=== PATIENT | female | born 1985 | race American Indian/Alaskan Native ===

== ENCOUNTER 2016-04-06 04:01 | Emergency (ER) | payer MEDICAID ==
[2016-04-06 04:41] VITALS: BP 158/104
== END 2016-04-06 04:46 | disposition left against medical advice (07) ==
LOC: ED 04:01
DX: R07.9 Chest pain, unspecified (principal); R10.9 Unspecified abdominal pain; Z53.21 Procedure and treatment not carried out due to patient leaving prior to being seen by health care provider
CPT/HCPCS: 93005; 93010

== ENCOUNTER 2016-09-01 11:41 | Emergency (ER) | payer MEDICAID ==
[2016-09-01 11:53] VITALS: BP 154/96
--- NOTE | 2016-09-01 12:58 | Emergency Department Report ---
HPI - General Chief Complaint: Dental/Oral Time Seen by Provider: 09/01/16 12:57 - HPI HPI: Patient reported that she is having in toothache to right lower back tooth despite ongoing on and off. She denies any fever or chills. Denies any swelling. She reports pain is 6/10 and is worse with eating. pain is achy and sensation ibuprofen. She does not have a dentist. Denies any difficulty swallowing and sore throat. Denies any upper/lower respiratory symptoms. ED Past Medical Hx - Past Medical History Previous Medical History?: Yes Hx Asthma: Yes - Surgical History Past Surgical History?: Yes Additional Surgical History: skin cancer removed - Family History Family history: no significant - Social History Smoking Status: Current Every Day Smoker Substance Use Type: Alcohol - Medications Home Medications: Home Medications Medication Instructions Recorded Confirmed Last Taken Type Clindamycin [Clindamycin CAP] 450 mg PO Q6HR #58 capsule 03/10/16 Unknown Rx Naproxen [Naprosyn] 500 mg PO BID #30 tablet 03/10/16 Unknown Rx Clindamycin [Clindamycin CAP] 300 mg PO Q8H #30 cap 09/01/16 Unknown Rx Ibuprofen [Motrin] 600 mg PO Q8H PRN #15 tablet 09/01/16 Unknown Rx ED Review of Systems ROS: Stated complaint: TOOTHACHE/INFECTION Other details as noted in HPI Comment: All other systems reviewed and negative Constitutional: denies: chills, fever Eyes: denies: eye pain ENT: dental pain. denies: ear pain, throat pain, epistaxis, congestion Respiratory: no symptoms reported Cardiovascular: denies: chest pain, palpitations, edema, syncope Gastrointestinal: denies: abdominal pain, nausea, vomiting Musculoskeletal: denies: back pain, arthralgia Skin: denies: rash Neurological: denies: headache Physical Exam - Physical Exam Vital Signs: Vital Signs 09/01/16 11:51 Temperature 98.8 F Pulse Rate 97 H Respiratory 16 Rate Blood Pressure 154/96 O2 Sat by Pulse 97 Oximetry General: This is a 31-year-old female well-nourished well-developed female in acute distress. Physical Exam: Head: Normocephalic atraumatic Mouth: Moist, no pharyngeal exudate or erythema. Uvula is midline and oral airway is patent. positive gingival enlargement. Cavities noted. Positive Dental tenderness since #32 with cavity and erythema. No induration or fluctuance. No facial swelling. No peritonsillar abscesses. Neck: Supple, no C-spine tenderness, no tracheal deviation. Nontender to palpate. no adenopathy Ears: Bilateral TMs pearly pruett .bilateral EAC without any redness swelling or drainage Eyes: Bilateral pupils equal and reactive to light, bilateral EOM intact. Bilateral sclera and conjunctiva without injection. Normal accommodation Nose: Mucosa moist, normal. maxillary and frontal sinus non-tender to palpate. Lungs: clear to auscultate bilaterally no rhonchi wheezes or rales. Normal work of breathing extremity; No CCE. +2 pulses. No neurovascular compromise Cardiovascular: S1-S2, regular rate rhythm. No murmurs. Skin: clean Dry and intact no rash no lesions Psych: Normal mood and behavior ED Course Vital Signs 09/01/16 11:51 Temperature 98.8 F Pulse Rate 97 H Respiratory 16 Rate Blood Pressure 154/96 O2 Sat by Pulse 97 Oximetry - Reevaluation(s) Reevaluation #1: 09/01/16 13:27 She refused Motrin in the emergency room for pain. ED Medical Decision Making - Medical Decision Making ED Course: Toothache, gingival enlargement and dental caries. She is here in the past for similar problems and for treatment of toothache. I discussed with patient that she will need to follow up with a dentist and she doesn't have one [facility] dental clinic. I told her that the problems she is having with her teeth will have to be treated by a dentist. Patient was understanding then. His Motrin and emergency room and discharged home with prescription for Motrin and clindamycin. Critical care attestation.: If time is entered above; I have spent that time in minutes in the direct care of this critically ill patient, excluding procedure time. ED Disposition Clinical Impression: Dental caries, Tooth ache, Gingival enlargement, Oral cellulitis Disposition: DC-01 TO HOME OR SELFCARE Is pt being admited?: No Does the pt Need Aspirin: No Condition: Stable Instructions: Cellulitis (ED), Gingivitis (ED), Dental Caries (ED), Toothache ( ED) Additional Instructions: Follow-up at [facility] dental clinic call tomorrow to schedule an appointment Take antibiotic as prescribed. Prescriptions: Clindamycin [Clindamycin CAP] 300 mg PO Q8H #30 cap Ibuprofen [Motrin] 600 mg PO Q8H PRN #15 tablet PRN Reason: Pain Referrals: PRIMARY CARE,MD [Primary Care Provider] - 3-5 Days Forms: Work/School Release Form(ED)
[2016-09-01] MEDS ORDERED: MOTRIN PO ONE (13:06)
== END 2016-09-01 13:41 | disposition home or self-care (01) ==
LOC: ED 11:41
DX: K12.2 Cellulitis and abscess of mouth (principal); K06.1 Gingival enlargement; K02.9 Dental caries, unspecified; F17.210 Nicotine dependence, cigarettes, uncomplicated; J45.909 Unspecified asthma, uncomplicated
CPT/HCPCS: 99282

== ENCOUNTER 2016-09-03 23:56 | Emergency (ER) | payer MEDICAID ==
[2016-09-04 00:17] VITALS: BP 145/107
[2016-09-04 01:00] LABS: Basophils % (Auto) 0.6 % (0.0-1.8); Eosinophils % (Auto) 0.8 % (0.0-4.3); Hematocrit 41.5 % (30.3-42.9); Mean Corpuscular HGB Conc 34 % (30-34); Mean Corpuscular Hemoglobin 31 pg (28-32); Mean Corpuscular Volume 92 fl (79-97); Platelet Count 288 K/mm3 (140-440); Red Blood Count 4.52 M/mm3 (3.65-5.03); Red Cell Distribution Width 13.1 % (13.2-15.2); White Blood Count 10.3 K/mm3 (4.5-11.0)
[2016-09-04 01:03] LABS: Bacteria,Urine 1+ /HPF (Negative); Bilirubin,Urine NEG (Negative); Blood,Urine NEG (Negative); Ketones,Urine NEG (Negative); Leukocyte Esterase,Urine NEG (Negative); Nitrite,Urine NEG (Negative); Protein,Urine <15 mg/dL mg/dL (Negative); Urobilinogen,Urine < 2.0 mg/dL (<2.0); WBC,Urine < 1.0 /HPF (0.0-6.0)
[2016-09-04 01:15] LABS: Anion Gap 17 mmol/L; BUN/Creatinine Ratio 8.57; Blood Urea Nitrogen 6 mg/dL (7-17); Calcium 8.8 mg/dL (8.4-10.2); Carbon Dioxide 25 mmol/L (22-30); Chloride 101.4 mmol/L (98-107); Glucose 104 mg/dL (65-100); Potassium 3.8 mmol/L (3.6-5.0); Sodium 140 mmol/L (137-145)
--- NOTE | 2016-09-07 11:26 | ED Elopement Review ---
ED Pt Elopement review - Results review Lab results: Laboratory Tests 09/04/16 09/04/16 09/04/16 00:31 00:31 00:35 WBC 10.3 RBC 4.52 Hgb 14.0 Hct 41.5 MCV 92 MCH 31 MCHC 34 RDW 13.1 L Plt Count 288 Lymph % (Auto) 42.8 H [place] % (Auto) 7.6 H Eos % (Auto) 0.8 Baso % (Auto) 0.6 Lymph # 4.4 [place] # 0.8 Eos # 0.1 Baso # 0.1 Seg Neutrophils % 48.2 Seg Neutrophils # 5.0 Sodium 140 Potassium 3.8 Chloride 101.4 Carbon Dioxide 25 Anion Gap 17 BUN 6 L Creatinine 0.7 Estimated GFR > 60 BUN/Creatinine Ratio 8.57 Glucose 104 H Calcium 8.8 Troponin T < 0.010 Urine Color Colorless Urine Turbidity Clear Urine pH 6.0 Ur Specific [place] 1.003 Urine Protein <15 mg/dl Urine Glucose (UA) Neg Urine Ketones Neg Urine Blood Neg Urine Nitrite Neg Urine Bilirubin Neg Urine Urobilinogen < 2.0 Ur Leukocyte Esterase Neg Urine WBC (Auto) < 1.0 Urine RBC (Auto) 1.0 U Epithel Cells (Auto) < 1.0 Urine Bacteria (Auto) 1+ Urine HCG, Qual Negative - Call Back decision Pt Call Back Decision: No action required
== END 2016-09-04 06:04 | disposition left against medical advice (07) ==
LOC: ED 23:56
DX: R03.0 Elevated blood-pressure reading, without diagnosis of hypertension (principal); R51 Headache; R42 Dizziness and giddiness; Z53.21 Procedure and treatment not carried out due to patient leaving prior to being seen by health care provider
CPT/HCPCS: 36415; 80048; 81001; 81025; 84484; 85025; 93005; 93010

== ENCOUNTER 2017-01-03 17:08 | Emergency (ER) | payer MEDICAID ==
[2017-01-03 17:55] LABS: Basophils % (Auto) 0.6 % (0.0-1.8); Eosinophils % (Auto) 0.6 % (0.0-4.3); Hematocrit 45.4 % (30.3-42.9); Hemoglobin 15.3 gm/dl (10.1-14.3); Mean Corpuscular HGB Conc 34 % (30-34); Mean Corpuscular Hemoglobin 31 pg (28-32); Mean Corpuscular Volume 93 fl (79-97); Platelet Count 277 K/mm3 (140-440); Red Blood Count 4.89 M/mm3 (3.65-5.03); Red Cell Distribution Width 13.3 % (13.2-15.2)
[2017-01-03 18:17] LABS: Alanine Aminotransferase 13 units/L (7-56); Albumin/Globulin Ratio 1.4 %; Alkaline Phosphatase 44 units/L (35-129); Anion Gap 16 mmol/L; BUN/Creatinine Ratio 6; Blood Urea Nitrogen 5 mg/dL (7-17); Calcium 8.6 mg/dL (8.4-10.2); Carbon Dioxide 25 mmol/L (22-30); Chloride 101.1 mmol/L (98-107); Glucose 93 mg/dL (65-100); Potassium 4.1 mmol/L (3.6-5.0); Sodium 138 mmol/L (137-145); Total Protein 6.9 g/dL (6.3-8.2)
--- NOTE | 2017-01-03 21:09 | Emergency Department Report ---
ED General Adult HPI - General Chief complaint: Pain General Stated complaint: FLU LIKE SYMPTOMS Time Seen by Provider: 01/03/17 20:43 Source: patient Mode of arrival: Ambulatory Limitations: No Limitations - History of Present Illness Initial comments: pt is a 31 y/o aaf with hx of asthma and infected dental carries who presents for generalized bodyache and fever after toothache that started 2 days ago ,pt advises that she is unable to see dentist because she has no money, pt request referral to community dental services for evaluation and treatment of dental carries. current pain is 3/10 aching pt is not takin otc nsaids, at this time last abx 1 month ago. Complaint: 2 -: days(s) Location: mouth (toothache ) Radiation: non-radiation Severity scale (0 -10): 3 Quality: aching Consistency: intermittent Improves with: none Worsens with: other (hot cold sensation ) Associated Symptoms: fever/chills, malaise. denies: confusion, chest pain, cough, diaphoresis, headaches, loss of appetite, nausea/vomiting, rash, seizure , shortness of breath, syncope, weakness Treatments Prior to Arrival: none - Related Data Previous Rx's Medication Instructions Recorded Last Taken Type Clindamycin [Clindamycin CAP] 450 mg PO Q6HR #58 capsule 03/10/16 Unknown Rx Ibuprofen [Motrin] 600 mg PO Q8H PRN #15 tablet 09/01/16 Unknown Rx Clindamycin [Clindamycin CAP] 300 mg PO Q8H #30 cap 01/03/17 Unknown Rx Naproxen [Naprosyn TAB] 500 mg PO BID #30 tablet 01/03/17 Unknown Rx Allergies Allergy/AdvReac Type Severity Reaction Status Date / Time No Known Allergies Allergy Unverified 03/10/16 13:45 ED Review of Systems ROS: Stated complaint: FLU LIKE SYMPTOMS Other details as noted in HPI Constitutional: denies: chills, fever Eyes: denies: eye pain, eye discharge, vision change ENT: dental pain. denies: ear pain, throat pain, hearing loss, epistaxis, congestion Respiratory: denies: cough, shortness of breath, wheezing Cardiovascular: denies: chest pain, palpitations Endocrine: no symptoms reported Gastrointestinal: denies: abdominal pain, nausea, diarrhea Genitourinary: denies: urgency, dysuria, discharge Musculoskeletal: denies: back pain, joint swelling, arthralgia Skin: denies: rash, lesions Neurological: denies: headache, weakness, paresthesias Psychiatric: denies: anxiety, depression Hematological/Lymphatic: denies: easy bleeding, easy bruising ED Past Medical Hx - Past Medical History Hx Asthma: Yes - Surgical History Additional Surgical History: skin cancer removed - Social History Smoking Status: Current Every Day Smoker Substance Use Type: None - Medications Home Medications: Home Medications Medication Instructions Recorded Confirmed Last Taken Type Clindamycin [Clindamycin CAP] 450 mg PO Q6HR #58 capsule 03/10/16 Unknown Rx Ibuprofen [Motrin] 600 mg PO Q8H PRN #15 tablet 09/01/16 Unknown Rx Clindamycin [Clindamycin CAP] 300 mg PO Q8H #30 cap 01/03/17 Unknown Rx Naproxen [Naprosyn TAB] 500 mg PO BID #30 tablet 01/03/17 Unknown Rx ED Physical Exam - General Limitations: No Limitations General appearance: alert, in no apparent distress - Head Head exam: Present: atraumatic, normocephalic - Eye Eye exam: Present: normal appearance, PERRL, EOMI Pupils: Present: normal accommodation - ENT ENT exam: Present: normal exam, mucous membranes moist, TM's normal bilaterally , normal external ear exam - Expanded ENT Exam Expanded Mouth exam: Present: normal external inspection. Absent: trismus Teeth exam: Present: dental caries, dental tenderness # (27), other (mild erythema no gum swelling no facial swelling no trismus no focal abscess ) Throat exam: Positive: tonsillar erythema. Negative: tonsillomegaly, tonsillar exudate, R peritonsillar mass, L peritonsillar mass - Neck Neck exam: Present: normal inspection, full ROM. Absent: tenderness, lymphadenopathy, thyromegaly - Respiratory Respiratory exam: Present: normal lung sounds bilaterally. Absent: respiratory distress, wheezes, stridor, chest wall tenderness - Cardiovascular Cardiovascular Exam: Present: regular rate, normal rhythm. Absent: systolic murmur, diastolic murmur, rubs, gallop - GI/Abdominal GI/Abdominal exam: Present: soft, normal bowel sounds. Absent: distended, tenderness, guarding, rebound, rigid, organomegaly, mass, bruit, pulsatile mass , hernia - Rectal Rectal exam: Present: deferred - Extremities Exam Extremities exam: Present: normal inspection, full ROM, tenderness - Back Exam Back exam: Present: normal inspection, full ROM, tenderness - Neurological Exam Neurological exam: Present: alert, oriented X3, CN II-XII intact, normal gait, reflexes normal. Absent: motor sensory deficit - Psychiatric Psychiatric exam: Present: normal affect, normal mood - Skin Skin exam: Present: warm, dry, intact, normal color. Absent: rash ED Course Vital Signs 01/03/17 17:13 Temperature 98.6 F Pulse Rate 83 Respiratory 16 Rate Blood Pressure 122/75 O2 Sat by Pulse 100 Oximetry ED Medical Decision Making - Lab Data Result diagrams: 01/03/17 17:40 01/03/17 17:40 - Medical Decision Making pt is a 31 y/o aaf with hx of asthma and infected dental carries who presents for generalized bodyache and fever after toothache that started 2 days ago ,pt advises that she is unable to see dentist because she has no money, pt request referral to community dental services for evaluation and treatment of dental carries. current pain is 3/10 aching pt is not takin otc nsaids, at this time last abx 1 month ago. exam: mild erythema no gum swelling no facial swelling no trismus no focal abscess , plan: clindamycin , naproxen, follow up with [facility] [phone] pt verbalized agreement and understanding with discharge plan. Critical care attestation.: If time is entered above; I have spent that time in minutes in the direct care of this critically ill patient, excluding procedure time. ED Disposition Clinical Impression: Infected dental caries Disposition: TO HOME OR SELFCARE Is pt being admited?: No Does the pt Need Aspirin: No Condition: Good Instructions: Dental Caries (ED) Additional Instructions: follow up with [facility] [phone] Prescriptions: Clindamycin [Clindamycin CAP] 300 mg PO Q8H #30 cap Naproxen [Naprosyn TAB] 500 mg PO BID #30 tablet Referrals: PRIMARY CARE, [Primary Care Provider] - 3-5 Days Forms: Work/School Release Form(ED) Time of Disposition: 21:16
[2017-01-04 02:23] VITALS: BP 128/73
== END 2017-01-03 21:24 | disposition home or self-care (01) ==
LOC: ED 17:08
DX: K02.9 Dental caries, unspecified (principal); J45.909 Unspecified asthma, uncomplicated; F17.200 Nicotine dependence, unspecified, uncomplicated
CPT/HCPCS: 36415; 80053; 81025; 85025; 87086; 87400; 99283

== ENCOUNTER 2017-06-03 13:46 | Emergency (ER) | payer MEDICAID ==
[2017-06-03 13:56] VITALS: BP 118/86
[2017-06-03] MEDS ORDERED: MOTRIN PO ONE (14:51)
--- NOTE | 2017-06-03 14:51 | Emergency Department Report ---
ED ENT HPI - General Chief complaint: Dental/Oral Stated complaint: TOOTH PAIN Time Seen by Provider: 06/03/17 14:50 Source: patient Mode of arrival: Ambulatory Limitations: No Limitations - History of Present Illness Initial comments: This is a 32-year-old female nontoxic, well nourished in appearance, no acute signs of distress presents to the ED with c/o of acute on chronic toothache. Patient stated pain has came back since 2 days ago. Patient denies any facial swelling. He denies any fever, chills, nausea, vomiting, chest pain or shortness of breath. Patient states allergies to penicillin. Past medical history includes asthma, skin cancer, and psychiatric. MD complaint: tooth pain -: days(s) (2) Location: tooth # (28-32) 1 - dental caries 2 - dental dorothea Severity: mild Severity scale (0 -10): 8 Quality: aching Consistency: constant Improves with: none Worsens with: none Context- Dental: history of dental caries, poor dental care Associated Symptoms: gum swelling, toothache. denies: fever, cough, pain with swallowing, sore throat, tinnitus, hearing loss, discharge from ear, rhinorrhea - Related Data Previous Rx's Medication Instructions Recorded Last Taken Type Clindamycin [Clindamycin CAP] 450 mg PO Q6HR #58 capsule 03/10/16 Unknown Rx Ibuprofen [Motrin] 600 mg PO Q8H PRN #15 tablet 09/01/16 Unknown Rx Clindamycin [Clindamycin CAP] 300 mg PO Q8H #30 cap 01/03/17 Unknown Rx Naproxen [Naprosyn TAB] 500 mg PO BID #30 tablet 01/03/17 Unknown Rx Clindamycin [Clindamycin CAP] 150 mg PO Q6HR #40 capsule 01/20/17 Unknown Rx Ibuprofen [Motrin] 800 mg PO Q8HR PRN #30 tablet 01/20/17 Unknown Rx Chlorhexidine Mouthwash [Peridex] 15 ml MM BID #1 bottle 06/03/17 Unknown Rx Clindamycin [Clindamycin CAP] 300 mg PO Q8HR 7 Days capsule 06/03/17 Unknown Rx Ibuprofen [Motrin] 600 mg PO Q8H PRN #30 tablet 06/03/17 Unknown Rx traMADol [Ultram] 50 mg PO Q6HR PRN #15 tablet 06/03/17 Unknown Rx Allergies Allergy/AdvReac Type Severity Reaction Status Date / Time Penicillins Allergy Unknown Verified 01/19/17 20:52 ED Dental HPI - General Chief complaint: Dental/Oral Stated complaint: TOOTH PAIN Time Seen by Provider: 06/03/17 14:50 Source: patient Mode of arrival: Ambulatory Limitations: No Limitations - Related Data Previous Rx's Medication Instructions Recorded Last Taken Type Clindamycin [Clindamycin CAP] 450 mg PO Q6HR #58 capsule 03/10/16 Unknown Rx Ibuprofen [Motrin] 600 mg PO Q8H PRN #15 tablet 09/01/16 Unknown Rx Clindamycin [Clindamycin CAP] 300 mg PO Q8H #30 cap 01/03/17 Unknown Rx Naproxen [Naprosyn TAB] 500 mg PO BID #30 tablet 01/03/17 Unknown Rx Clindamycin [Clindamycin CAP] 150 mg PO Q6HR #40 capsule 01/20/17 Unknown Rx Ibuprofen [Motrin] 800 mg PO Q8HR PRN #30 tablet 01/20/17 Unknown Rx Chlorhexidine Mouthwash [Peridex] 15 ml MM BID #1 bottle 06/03/17 Unknown Rx Clindamycin [Clindamycin CAP] 300 mg PO Q8HR 7 Days capsule 06/03/17 Unknown Rx Ibuprofen [Motrin] 600 mg PO Q8H PRN #30 tablet 06/03/17 Unknown Rx traMADol [Ultram] 50 mg PO Q6HR PRN #15 tablet 06/03/17 Unknown Rx Allergies Allergy/AdvReac Type Severity Reaction Status Date / Time Penicillins Allergy Unknown Verified 01/19/17 20:52 ED Review of Systems ROS: Stated complaint: TOOTH PAIN Other details as noted in HPI Constitutional: denies: chills, fever Eyes: denies: eye pain, eye discharge, vision change ENT: dental pain. denies: ear pain, throat pain Respiratory: denies: cough, shortness of breath, wheezing Cardiovascular: denies: chest pain, palpitations Endocrine: no symptoms reported Gastrointestinal: denies: abdominal pain, nausea, diarrhea Genitourinary: denies: urgency, dysuria, discharge Musculoskeletal: denies: back pain, joint swelling, arthralgia Skin: denies: rash, lesions Neurological: denies: headache, weakness, paresthesias Psychiatric: denies: anxiety, depression Hematological/Lymphatic: denies: easy bleeding, easy bruising ED Past Medical Hx - Past Medical History Previous Medical History?: Yes Hx of Cancer: Yes (skin) Hx Psychiatric Treatment: Yes (Anxiety, Schizophrenia, Depression, Memory problems) Hx Asthma: Yes - Surgical History Past Surgical History?: Yes Additional Surgical History: skin cancer removed - Social History Smoking Status: Current Every Day Smoker Substance Use Type: Alcohol, Marijuana - Medications Home Medications: Home Medications Medication Instructions Recorded Confirmed Last Taken Type Clindamycin [Clindamycin CAP] 450 mg PO Q6HR #58 capsule 03/10/16 Unknown Rx Ibuprofen [Motrin] 600 mg PO Q8H PRN #15 tablet 09/01/16 Unknown Rx Clindamycin [Clindamycin CAP] 300 mg PO Q8H #30 cap 01/03/17 Unknown Rx Naproxen [Naprosyn TAB] 500 mg PO BID #30 tablet 01/03/17 Unknown Rx Clindamycin [Clindamycin CAP] 150 mg PO Q6HR #40 capsule 01/20/17 Unknown Rx Ibuprofen [Motrin] 800 mg PO Q8HR PRN #30 tablet 01/20/17 Unknown Rx Chlorhexidine Mouthwash [Peridex] 15 ml MM BID #1 bottle 06/03/17 Unknown Rx Clindamycin [Clindamycin CAP] 300 mg PO Q8HR 7 Days capsule 06/03/17 Unknown Rx Ibuprofen [Motrin] 600 mg PO Q8H PRN #30 tablet 06/03/17 Unknown Rx traMADol [Ultram] 50 mg PO Q6HR PRN #15 tablet 06/03/17 Unknown Rx ED Physical Exam - General Limitations: No Limitations General appearance: alert, in no apparent distress - Head Head exam: Present: atraumatic, normocephalic - Eye Eye exam: Present: normal appearance Pupils: Present: normal accommodation - ENT ENT exam: Present: mucous membranes moist, TM's normal bilaterally, normal external ear exam - Expanded ENT Exam Expanded Ear exam: Present: normal external inspection Mouth exam: Present: normal external inspection, tongue normal. Absent: drooling, trismus, muffled voice, tongue elevation, laceration Teeth exam: Present: dental caries, fractured tooth # (28-32), dental tenderness # (28-32), gingival enlargement, other (No facial swelling. ) Throat exam: Positive: normal inspection, other (Uvula midline. No abscess or swelling noted. ). Negative: tonsillar erythema, tonsillomegaly, tonsillar exudate, R peritonsillar mass, L peritonsillar mass - Neck Neck exam: Present: normal inspection, full ROM. Absent: tenderness, meningismus, lymphadenopathy, thyromegaly - Respiratory Respiratory exam: Present: normal lung sounds bilaterally. Absent: respiratory distress, wheezes, rales, rhonchi, stridor, chest wall tenderness, accessory muscle use, decreased breath sounds, prolonged expiratory - Cardiovascular Cardiovascular Exam: Present: regular rate, normal rhythm, normal heart sounds. Absent: irregular rhythm, systolic murmur, diastolic murmur, rubs, gallop - GI/Abdominal GI/Abdominal exam: Present: soft, normal bowel sounds - Extremities Exam Extremities exam: Present: normal inspection - Back Exam Back exam: Present: normal inspection - Neurological Exam Neurological exam: Present: alert, oriented X3 - Psychiatric Psychiatric exam: Present: normal affect, normal mood - Skin Skin exam: Present: warm, dry, intact, normal color. Absent: rash ED Course Vital Signs 06/03/17 13:51 Temperature 98.8 F Pulse Rate 92 H Respiratory 20 Rate Blood Pressure 118/86 O2 Sat by Pulse 97 Oximetry - Reevaluation(s) Reevaluation #1: 06/03/17 15:17 Patient is speaking in full sentences with no signs of distress noted. ED Medical Decision Making - Medical Decision Making Patient returned with the mediation Clindamycin bottle and stated the capsules are too big and can not swallow. PAtient requested for 150 mg pills. Critical care attestation.: If time is entered above; I have spent that time in minutes in the direct care of this critically ill patient, excluding procedure time. ED Disposition Clinical Impression: Dental caries, Gingivitis Disposition: - TO HOME OR SELFCARE Is pt being admited?: No Does the pt Need Aspirin: No Condition: Stable Instructions: Clindamycin (By mouth), Tramadol (By mouth), Dental Caries (ED), Gingivitis (ED) Additional Instructions: Follow-up with a dentist in 3-5 days or if symptoms worsen and continue return to emergency room as soon as possible. Prescriptions: Chlorhexidine Mouthwash [Peridex] 15 ml MM BID #1 bottle Clindamycin [Clindamycin CAP] 300 mg PO Q8HR 7 Days capsule Ibuprofen [Motrin] 600 mg PO Q8H PRN #30 tablet PRN Reason: Pain traMADol [Ultram] 50 mg PO Q6HR PRN #15 tablet PRN Reason: Pain Referrals: PRIMARY CAREMD [Primary Care Provider] - 3-5 Days VERÓNICA LORENZO MD [Staff Physician] - 3-5 Days Mamadou [facility] [Outside] - 3-5 Days Forms: Work/School Release Form(ED)
== END 2017-06-03 15:53 | disposition home or self-care (01) ==
LOC: ED 13:46
DX: K05.10 Chronic gingivitis, plaque induced (principal); K02.9 Dental caries, unspecified; F17.200 Nicotine dependence, unspecified, uncomplicated; F12.10 Cannabis abuse, uncomplicated; Z88.0 Allergy status to penicillin
CPT/HCPCS: 99282

== ENCOUNTER 2017-11-07 20:31 | Emergency (ER) | payer MEDICAID ==
[2017-11-07 21:01] VITALS: BP 129/75
--- NOTE | 2017-11-08 00:15 | Emergency Department Report ---
- General Chief Complaint: Upper Respiratory Infection Stated Complaint: COLD SX Time Seen by Provider: 11/07/17 23:24 Source: patient Mode of arrival: Ambulatory Limitations: No Limitations - History of Present Illness Initial Comments: Patient presents with URI symptoms 3 days cough and postnasal drip and congestion low-grade fever of 101.2 which intermittent sore throat patient is tolerating by mouth intake is no nausea vomiting no dizziness no lightheadedness no back pain or shortness of breath no wheezing no stridor patient has not taken [id number] cold medications symptoms are exacerbated by activity symptoms are improved by rest MD Complaint: fever, cough, sore throat, rhinorrhea, nasal congestion Onset/Timin -: week(s) Severity: moderate Severity scale (0 -10): 4 (lungs are) Quality: sharp Consistency: intermittent Improves With: rest Worsens With: activity Context: sick contacts Associated Symptoms: fever, rhinorrhea, nasal congestion, sore throat, cough Treatments Prior to Arrival: none - Related Data Previous Rx's Medication Instructions Recorded Last Taken Type Clindamycin [Clindamycin CAP] 450 mg PO Q6HR #58 capsule 03/10/16 Unknown Rx Ibuprofen [Motrin] 600 mg PO Q8H PRN #15 tablet 09/01/16 Unknown Rx Clindamycin [Clindamycin CAP] 300 mg PO Q8H #30 cap 01/03/17 Unknown Rx Naproxen [Naprosyn TAB] 500 mg PO BID #30 tablet 01/03/17 Unknown Rx Clindamycin [Clindamycin CAP] 150 mg PO Q6HR #40 capsule 01/20/17 Unknown Rx Ibuprofen [Motrin] 800 mg PO Q8HR PRN #30 tablet 01/20/17 Unknown Rx Chlorhexidine Mouthwash [Peridex] 15 ml MM BID #1 bottle 06/03/17 Unknown Rx Clindamycin [Clindamycin CAP] 300 mg PO Q8HR 7 Days capsule 06/03/17 Unknown Rx Ibuprofen [Motrin] 600 mg PO Q8H PRN #30 tablet 06/03/17 Unknown Rx traMADol [Ultram] 50 mg PO Q6HR PRN #15 tablet 06/03/17 Unknown Rx Guaifenesin/Pseudoephedrne HCl 1 tab PO BID #24 tab 11/08/17 Unknown Rx [Mucinex D ER 1,200-120 mg Tab] Ibuprofen 800 mg PO TID PRN #30 tablet 11/08/17 Unknown Rx Allergies Allergy/AdvReac Type Severity Reaction Status Date / Time Penicillins Allergy Unknown Verified 01/19/17 20:52 ED Review of Systems ROS: Stated complaint: COLD SX Other details as noted in HPI Constitutional: chills, fever ENT: throat pain, congestion Respiratory: cough Cardiovascular: denies: chest pain, palpitations Endocrine: no symptoms reported Gastrointestinal: denies: abdominal pain, nausea, diarrhea Genitourinary: denies: urgency, dysuria, discharge Musculoskeletal: denies: back pain, joint swelling, arthralgia Skin: denies: rash, lesions Neurological: denies: headache, weakness, paresthesias Psychiatric: denies: anxiety, depression Hematological/Lymphatic: denies: easy bleeding, easy bruising ED Past Medical Hx - Past Medical History Hx Psychiatric Treatment: Yes (Anxiety, Schizophrenia, Depression, Memory problems) Hx Asthma: Yes - Surgical History Additional Surgical History: skin cancer removed - Social History Smoking Status: Never Smoker Substance Use Type: None - Medications Home Medications: Home Medications Medication Instructions Recorded Confirmed Last Taken Type Clindamycin [Clindamycin CAP] 450 mg PO Q6HR #58 capsule 03/10/16 Unknown Rx Ibuprofen [Motrin] 600 mg PO Q8H PRN #15 tablet 09/01/16 Unknown Rx Clindamycin [Clindamycin CAP] 300 mg PO Q8H #30 cap 01/03/17 Unknown Rx Naproxen [Naprosyn TAB] 500 mg PO BID #30 tablet 01/03/17 Unknown Rx Clindamycin [Clindamycin CAP] 150 mg PO Q6HR #40 capsule 01/20/17 Unknown Rx Ibuprofen [Motrin] 800 mg PO Q8HR PRN #30 tablet 01/20/17 Unknown Rx Chlorhexidine Mouthwash [Peridex] 15 ml MM BID #1 bottle 06/03/17 Unknown Rx Clindamycin [Clindamycin CAP] 300 mg PO Q8HR 7 Days capsule 06/03/17 Unknown Rx Ibuprofen [Motrin] 600 mg PO Q8H PRN #30 tablet 06/03/17 Unknown Rx traMADol [Ultram] 50 mg PO Q6HR PRN #15 tablet 06/03/17 Unknown Rx Guaifenesin/Pseudoephedrne HCl 1 tab PO BID #24 tab 11/08/17 Unknown Rx [Mucinex D ER 1,200-120 mg Tab] Ibuprofen 800 mg PO TID PRN #30 tablet 11/08/17 Unknown Rx ED Physical Exam - General Limitations: No Limitations General appearance: alert, in no apparent distress - Head Head exam: Present: atraumatic, normocephalic, normal inspection - Eye Eye exam: Present: normal appearance, PERRL, EOMI Pupils: Present: normal accommodation - ENT ENT exam: Present: mucous membranes moist, TM's normal bilaterally, normal external ear exam, other (bilat turbinate erythema clear post nasal drip ) - Expanded ENT Exam Expanded Ear exam: Present: normal external inspection Mouth exam: Absent: trismus Teeth exam: Present: normal inspection Throat exam: Positive: tonsillar erythema, other (uvula midline no stridor). Negative: tonsillomegaly, tonsillar exudate, R peritonsillar mass, L peritonsillar mass - Neck Neck exam: Present: normal inspection, full ROM. Absent: lymphadenopathy, thyromegaly - Respiratory Respiratory exam: Present: normal lung sounds bilaterally. Absent: respiratory distress, wheezes, stridor, chest wall tenderness - Cardiovascular Cardiovascular Exam: Present: regular rate, normal rhythm, normal heart sounds. Absent: systolic murmur, diastolic murmur, rubs, gallop - GI/Abdominal GI/Abdominal exam: Present: soft, normal bowel sounds. Absent: bruit, hernia - Rectal Rectal exam: Present: deferred - Extremities Exam Extremities exam: Present: normal inspection - Back Exam Back exam: Present: normal inspection - Neurological Exam Neurological exam: Present: alert, oriented X3 - Psychiatric Psychiatric exam: Present: normal affect, normal mood - Skin Skin exam: Present: warm, dry, intact, normal color. Absent: rash ED Course Vital Signs 11/07/17 20:58 Temperature 100 F H Pulse Rate 96 H Respiratory 16 Rate Blood Pressure 129/75 O2 Sat by Pulse 96 Oximetry ED Medical Decision Making - Medical Decision Making This is a URI no TM erythema nose is patent bilateral turbinate erythema clear postnasal drip uvula remains midline no stridor is no wheezing lungs are clear plan NSAIDs antitussives patient has active prescription for clindamycin by mouth 3 times a day, patient will follow up with PCP in 2-3 days return to the ED should symptoms worsen Critical care attestation.: If time is entered above; I have spent that time in minutes in the direct care of this critically ill patient, excluding procedure time. ED Disposition Clinical Impression: URI (upper respiratory infection) Qualifiers: URI type: unspecified viral URI Qualified Code(s): J06.9 - Acute upper respiratory infection, unspecified Disposition: DC- TO HOME OR SELFCARE Is pt being admited?: No Does the pt Need Aspirin: No Condition: Good Instructions: Upper Respiratory Infection (ED) Prescriptions: Guaifenesin/Pseudoephedrne HCl [Mucinex D ER 1,200-120 mg Tab] 1 tab PO BID #24 tab Ibuprofen 800 mg PO TID PRN #30 tablet PRN Reason: pain fever Referrals: [facility] [Outside] - 3-5 Days Forms: Work/School Release Form(ED) Time of Disposition: 00:26
== END 2017-11-08 00:53 | disposition home or self-care (01) ==
LOC: ED 20:31
DX: J06.9 Acute upper respiratory infection, unspecified (principal); J45.909 Unspecified asthma, uncomplicated; F41.9 Anxiety disorder, unspecified; F20.9 Schizophrenia, unspecified; F32.9 Major depressive disorder, single episode, unspecified; Z79.899 Other long term (current) drug therapy; Z88.0 Allergy status to penicillin
CPT/HCPCS: 99282

== ENCOUNTER 2017-12-08 22:39 | Emergency (ER) | payer MEDICAID ==
[2017-12-08] MEDS ORDERED: MOTRIN ONE (23:31)
[2017-12-09] MEDS ORDERED: NACL 0.9% 1000 ML 1,000 ML IV ONE (00:02)
[2017-12-09] MEDS ORDERED: MOTRIN PO ONE (00:11)
[2017-12-09 00:37] LABS: Basophils # (Auto) 0.1 K/mm3 (0.0-0.1); Basophils % (Auto) 0.6 % (0.0-1.8); Eosinophils # (Auto) 0.1 K/mm3 (0.0-0.4); Eosinophils % (Auto) 0.6 % (0.0-4.3); Hematocrit 44.9 % (30.3-42.9); Lymphocytes # (Auto) 3.8 K/mm3 (1.2-5.4); Lymphocytes % (Auto) 38.2 % (13.4-35.0); Mean Corpuscular HGB Conc 34 % (30-34); Mean Corpuscular Hemoglobin 31 pg (28-32); Mean Corpuscular Volume 93 fl (79-97); Monocytes # (Auto) 0.8 K/mm3 (0.0-0.8); Monocytes % (Auto) 8.3 % (0.0-7.3); Platelet Count 249 K/mm3 (140-440); Red Blood Count 4.85 M/mm3 (3.65-5.03); Red Cell Distribution Width 13.2 % (13.2-15.2)
[2017-12-09 00:56] LABS: Alanine Aminotransferase 13 units/L (7-56); Albumin 4.3 g/dL (3.9-5); BUN/Creatinine Ratio 10; Blood Urea Nitrogen 8 mg/dL (7-17); Calcium 9.6 mg/dL (8.4-10.2); Hemolysis Index 5; Lipase 21 units/L (13-60)
[2017-12-09 06:14] LABS: Bilirubin,Urine NEG (Negative); Blood,Urine NEG (Negative); Color,Urine Yellow (Yellow); Mucus,Urine FEW /HPF; Protein,Urine <15 mg/dL mg/dL (Negative); Urobilinogen,Urine < 2.0 mg/dL (<2.0); WBC,Urine < 1.0 /HPF (0.0-6.0)
[2017-12-09 08:27] VITALS: BP 108/71
--- NOTE | 2017-12-09 08:33 | Emergency Department Report ---
ED General Adult HPI - General Chief complaint: Abdominal Pain Stated complaint: TOOTH PAIN/ABDOMINAL PAIN Time Seen by Provider: 12/09/17 08:21 Source: patient Mode of arrival: Ambulatory Limitations: No Limitations - History of Present Illness Initial comments: Patient is 32 years old female with history of gallstones. Presented to the ER was to complaints. Patient presented with right jaw swelling and teeth pain for the last 2-3 days. She also stated that she didn't having some abdominal pain for 1 year. She stated that she was diagnosed with gallstone before and she did not have a surgeon to follow up with yet. Patient denied any fever, nausea or vomiting. Severity scale (0 -10): 7 - Related Data Previous Rx's Medication Instructions Recorded Last Taken Type Clindamycin [Clindamycin CAP] 450 mg PO Q6HR #58 capsule 03/10/16 Unknown Rx Ibuprofen [Motrin] 600 mg PO Q8H PRN #15 tablet 09/01/16 Unknown Rx Clindamycin [Clindamycin CAP] 300 mg PO Q8H #30 cap 01/03/17 Unknown Rx Naproxen [Naprosyn TAB] 500 mg PO BID #30 tablet 01/03/17 Unknown Rx Clindamycin [Clindamycin CAP] 150 mg PO Q6HR #40 capsule 01/20/17 Unknown Rx Ibuprofen [Motrin] 800 mg PO Q8HR PRN #30 tablet 01/20/17 Unknown Rx Chlorhexidine Mouthwash [Peridex] 15 ml MM BID #1 bottle 06/03/17 Unknown Rx Clindamycin [Clindamycin CAP] 300 mg PO Q8HR 7 Days capsule 06/03/17 Unknown Rx Ibuprofen [Motrin] 600 mg PO Q8H PRN #30 tablet 06/03/17 Unknown Rx traMADol [Ultram] 50 mg PO Q6HR PRN #15 tablet 06/03/17 Unknown Rx Guaifenesin/Pseudoephedrne HCl 1 tab PO BID #24 tab 11/08/17 Unknown Rx [Mucinex D ER 1,200-120 mg Tab] Ibuprofen 800 mg PO TID PRN #30 tablet 11/08/17 Unknown Rx Clindamycin [Clindamycin CAP] 300 mg PO Q8HR 7 Days capsule 12/09/17 Unknown Rx Ondansetron [Zofran Odt] 4 mg PO Q8HR PRN #14 tab.rapdis 12/09/17 Unknown Rx Ursodiol (Nf) [Actigall (Nf)] 300 mg PO BID #60 capsule 12/09/17 Unknown Rx traMADol [Ultram] 50 mg PO Q6HR PRN #14 tablet 12/09/17 Unknown Rx Allergies Allergy/AdvReac Type Severity Reaction Status Date / Time Penicillins Allergy Unknown Verified 01/19/17 20:52 ED Review of Systems ROS: Stated complaint: TOOTH PAIN/ABDOMINAL PAIN Other details as noted in HPI Comment: All other systems reviewed and negative ENT: denies: throat pain Respiratory: denies: orthopnea Cardiovascular: denies: chest pain, palpitations, dyspnea on exertion Gastrointestinal: abdominal pain. denies: nausea, vomiting, diarrhea, constipation, hematemesis, melena, hematochezia Musculoskeletal: denies: back pain Neurological: denies: headache, weakness, numbness, paresthesias, confusion, abnormal gait ED Past Medical Hx - Past Medical History Hx Psychiatric Treatment: Yes (Anxiety, Schizophrenia, Depression, Memory problems) Hx Asthma: Yes Additional medical history: Gall stones - Surgical History Additional Surgical History: skin cancer removed - Social History Smoking Status: Current Every Day Smoker Substance Use Type: None - Medications Home Medications: Home Medications Medication Instructions Recorded Confirmed Last Taken Type Clindamycin [Clindamycin CAP] 450 mg PO Q6HR #58 capsule 03/10/16 Unknown Rx Ibuprofen [Motrin] 600 mg PO Q8H PRN #15 tablet 09/01/16 Unknown Rx Clindamycin [Clindamycin CAP] 300 mg PO Q8H #30 cap 01/03/17 Unknown Rx Naproxen [Naprosyn TAB] 500 mg PO BID #30 tablet 01/03/17 Unknown Rx Clindamycin [Clindamycin CAP] 150 mg PO Q6HR #40 capsule 01/20/17 Unknown Rx Ibuprofen [Motrin] 800 mg PO Q8HR PRN #30 tablet 01/20/17 Unknown Rx Chlorhexidine Mouthwash [Peridex] 15 ml MM BID #1 bottle 06/03/17 Unknown Rx Clindamycin [Clindamycin CAP] 300 mg PO Q8HR 7 Days capsule 06/03/17 Unknown Rx Ibuprofen [Motrin] 600 mg PO Q8H PRN #30 tablet 06/03/17 Unknown Rx traMADol [Ultram] 50 mg PO Q6HR PRN #15 tablet 06/03/17 Unknown Rx Guaifenesin/Pseudoephedrne HCl 1 tab PO BID #24 tab 11/08/17 Unknown Rx [Mucinex D ER 1,200-120 mg Tab] Ibuprofen 800 mg PO TID PRN #30 tablet 11/08/17 Unknown Rx Clindamycin [Clindamycin CAP] 300 mg PO Q8HR 7 Days capsule 12/09/17 Unknown Rx Ondansetron [Zofran Odt] 4 mg PO Q8HR PRN #14 tab.rapdis 12/09/17 Unknown Rx Ursodiol (Nf) [Actigall (Nf)] 300 mg PO BID #60 capsule 12/09/17 Unknown Rx traMADol [Ultram] 50 mg PO Q6HR PRN #14 tablet 12/09/17 Unknown Rx ED Physical Exam - General Limitations: No Limitations General appearance: alert, in no apparent distress - Head Head exam: Present: atraumatic, normocephalic, normal inspection - Eye Eye exam: Present: normal appearance, PERRL Pupils: Present: normal accommodation - ENT ENT exam: Present: normal exam, mucous membranes moist, other (dental caries right lower jaw) - Neck Neck exam: Present: normal inspection, full ROM. Absent: tenderness, meningismus, lymphadenopathy, thyromegaly - Respiratory Respiratory exam: Present: normal lung sounds bilaterally. Absent: respiratory distress, wheezes, rales, rhonchi, chest wall tenderness, accessory muscle use, decreased breath sounds, prolonged expiratory - Cardiovascular Cardiovascular Exam: Present: regular rate, normal rhythm, normal heart sounds - GI/Abdominal GI/Abdominal exam: Present: soft, normal bowel sounds. Absent: distended, tenderness, guarding, rebound, rigid, hypoactive bowel sounds, organomegaly, mass, bruit, pulsatile mass, hernia - Extremities Exam Extremities exam: Present: normal inspection, full ROM, normal capillary refill. Absent: tenderness, pedal edema, calf tenderness - Back Exam Back exam: Present: normal inspection, full ROM. Absent: tenderness, CVA tenderness (R), CVA tenderness (L) - Neurological Exam Neurological exam: Present: alert, oriented X3, CN II-XII intact, normal gait, reflexes normal - Skin Skin exam: Present: warm, intact, normal color ED Course Vital Signs 12/08/17 12/08/17 12/09/17 22:46 23:54 06:22 Temperature 98.8 F 98.8 F 98.3 F Pulse Rate 87 87 71 Respiratory 18 18 16 Rate Blood Pressure 141/88 141/88 Blood Pressure 121/78 [Left] O2 Sat by Pulse 98 98 98 Oximetry 12/09/17 08:15 Temperature Pulse Rate 77 Respiratory 16 Rate Blood Pressure Blood Pressure 108/71 [Left] O2 Sat by Pulse 100 Oximetry - Reevaluation(s) Reevaluation #1: 12/09/17 09:18 I discussed with the patient currently had a concern of not having an ultrasound done. Patient stated that she had an ultrasound that Geoffrey PARRA and she was told that she has gallstones. Patient admitted that she does not have any abdominal pain at this moment no fever on exam patient does not have any right upper quadrant tenderness or positive Rosario signs. I explained to the patient that she does not have any clinical or laboratory finding all acute cholecystitis or cholangitis or any emergency to require a right upper quadrant ultrasound. She stated that she just wanted all the size of the stone now, I told her politely that would not make any difference in the management. Patient also have a lot of concern about the waiting time that she had stated that she waited 12 hours and instead of going to fast track and be discharged earlier she waited so long and to be discharged home. ED Medical Decision Making - Lab Data Result diagrams: 12/09/17 00:13 12/09/17 00:13 - Medical Decision Making Patient is 32 years old female with history of toothache and tooth abscess and history of gallstones this been chronic for a while. Patient does not have any clinical or laboratory evidence of acute cholecystitis with completely benign abdomen with no tenderness or rebound tenderness or guarding. I discussed with the patient then needs to follow-up with a surgeon. I give Dr. Mata to follow -up with. I will provide her with clindamycin since patient is allergic to penicillin, pain medicine and advised that she'll follow-up with her primary care physician and to follow-up with his surgeon in the next 2-3 days. Critical care attestation.: If time is entered above; I have spent that time in minutes in the direct care of this critically ill patient, excluding procedure time. ED Disposition Clinical Impression: Abdominal pain, Dental abscess Disposition: DC-01 TO HOME OR SELFCARE Is pt being admited?: No Condition: Stable Instructions: Dental Abscess (ED), Abdominal Pain (ED) Prescriptions: Clindamycin [Clindamycin CAP] 300 mg PO Q8HR 7 Days capsule Ondansetron [Zofran Odt] 4 mg PO Q8HR PRN #14 tab.rapdis PRN Reason: Nausea And Vomiting traMADol [Ultram] 50 mg PO Q6HR PRN #14 tablet PRN Reason: Pain Ursodiol (Nf) [Actigall (Nf)] 300 mg PO BID #60 capsule Referrals: ISAK MATA MD [Staff Physician] - 3-5 Days
== END 2017-12-09 09:33 | disposition home or self-care (01) ==
LOC: ED 22:39
DX: K04.7 Periapical abscess without sinus (principal); R10.9 Unspecified abdominal pain; F20.9 Schizophrenia, unspecified; F32.9 Major depressive disorder, single episode, unspecified; F41.9 Anxiety disorder, unspecified; J45.909 Unspecified asthma, uncomplicated; F17.200 Nicotine dependence, unspecified, uncomplicated; Z88.0 Allergy status to penicillin
CPT/HCPCS: 36415; 80053; 81001; 83690; 84703; 85025; 99283

== ENCOUNTER 2019-04-30 11:38 | Emergency (ER) | payer MEDICAID ==
[2019-04-30 11:48] VITALS: BP 123/84
--- NOTE | 2019-04-30 11:49 | Emergency Department Report ---
Chief Complaint: Dental/Oral Stated Complaint: RT SIDE TOOTHACHE Time Seen by Provider: 04/30/19 11:47 - HPI History of Present Illness: 34 yo female presents with tooth pain at dental cavity tooth #3. No facial swelling. NO throa swelling. Referred to outside clinic MSE screening note: Focused history and physical exam performed. Due to findings the following was ordered: ED Disposition for MSE Clinical Impression: Dental cavity Disposition: - MED SCREENING EXAM-LEFT Condition: Stable Referrals: [facility] [Outside] - 3-5 Days
== END 2019-04-30 12:14 | disposition left against medical advice (07) ==
LOC: ED 11:38
DX: K02.9 Dental caries, unspecified (principal)
CPT/HCPCS: 99281

== ENCOUNTER 2020-01-30 16:02 | Emergency (ER) | payer MEDICAID ==
[2020-01-30 16:30] VITALS: BP 112/87
== END 2020-01-30 16:46 | disposition left against medical advice (07) ==
LOC: ED 16:02
DX: R10.13 Epigastric pain (principal); Z53.21 Procedure and treatment not carried out due to patient leaving prior to being seen by health care provider

== ENCOUNTER 2020-03-16 20:28 | Emergency (ER) | payer MEDICAID ==
--- NOTE | 2020-03-16 20:39 | Emergency Department Report ---
Stated Complaint: TOOTHACHE Time Seen by Provider: 03/16/20 20:38 - HPI History of Present Illness: DENTAL PAIN RIGHT MARK. NO TRISMUS CONTROLLING SECRETIONS ABD INTACT NO ABSCESS NO LUDWIGS - ROS Review of Systems: DENTAL PAIN ONLY - Exam Vital Signs: HR 100 ON PROVIDER EXAM Physical Exam: NO TRISMUS NO ABSCESS CONTROLLING SECRETIONS MSE screening note: Focused history and physical exam performed. Due to findings the following was ordered: NO LIFE THREAT GIVEN LIST OF DENTAL CLINICS FOR FOLLOW UP Patient discussed with doctor:: CINTHIA HERRERA ED Disposition for MSE Clinical Impression: Pain, dental Disposition: Z-07 MED SCREENING EXAM-LEFT Is pt being admited?: No Does the pt Need Aspirin: No Condition: Stable Time of Disposition: 20:43
[2020-03-16 20:42] VITALS: BP 139/91
== END 2020-03-16 20:40 | disposition left against medical advice (07) ==
LOC: ED 20:28
DX: K08.89 Other specified disorders of teeth and supporting structures (principal); Z53.21 Procedure and treatment not carried out due to patient leaving prior to being seen by health care provider

== ENCOUNTER 2020-06-05 11:14 | Emergency (ER) | payer MEDICAID ==
[2020-06-05 11:33] VITALS: BP 122/91
--- NOTE | 2020-06-05 12:05 | Emergency Department Report ---
ED ENT HPI - General Chief complaint: Dental/Oral Stated complaint: TOOTH INFECTION Time Seen by Provider: 06/05/20 12:04 Source: patient Mode of arrival: Ambulatory Limitations: No Limitations - History of Present Illness Initial comments: 35-year-old -[place] female presents to the emergency room for right upper quadrant dental pain with swelling. Patient states she has had multiple dental abscesses and admits that her her mouth needs lots of work. Patient states that the pain started last night. She denies any chest pain shortness of breath difficulty swallowing or drainage from her mouth. Patient denies any fever chills. Patient states that she is not a big fan of taking pain medication. Patient has been seen here several times for the same complaint. She does have an allergy to penicillin. She states the clindamycin does help with her infections. MD complaint: tooth pain -: Last night Severity: moderate Quality: stabbing, aching Consistency: constant Improves with: none Worsens with: eating Context- Dental: poor dental care Associated Symptoms: gum swelling. denies: fever, cough - Related Data Previous Rx's Medication Instructions Recorded Last Taken Type Clindamycin [Clindamycin CAP] 450 mg PO Q6HR #58 capsule 03/10/16 Unknown Rx Ibuprofen [Motrin] 600 mg PO Q8H PRN #15 tablet 09/01/16 Unknown Rx Naproxen [Naprosyn TAB] 500 mg PO BID #30 tablet 01/03/17 Unknown Rx Ibuprofen [Motrin] 800 mg PO Q8HR PRN #30 tablet 01/20/17 Unknown Rx Chlorhexidine Mouthwash [Peridex] 15 ml MM BID #1 bottle 06/03/17 Unknown Rx Clindamycin [Clindamycin CAP] 300 mg PO Q8HR 7 Days capsule 06/03/17 Unknown Rx Ibuprofen [Motrin] 600 mg PO Q8H PRN #30 tablet 06/03/17 Unknown Rx traMADoL [Ultram] 50 mg PO Q6HR PRN #15 tablet 06/03/17 Unknown Rx Guaifenesin/Pseudoephedrne HCl 1 tab PO BID #24 tab 11/08/17 Unknown Rx [Mucinex D ER 1,200-120 mg Tab] Ibuprofen 800 mg PO TID PRN #30 tablet 11/08/17 Unknown Rx Clindamycin [Clindamycin CAP] 300 mg PO Q8HR 7 Days capsule 12/09/17 Unknown Rx Ibuprofen 800 mg PO TID #30 tablet 12/09/17 Unknown Rx Ondansetron [Zofran Odt] 4 mg PO Q8HR PRN #14 tab.rapdis 12/09/17 Unknown Rx Ursodiol (Nf) [Actigall (Nf)] 300 mg PO BID #60 capsule 12/09/17 Unknown Rx traMADoL [Ultram] 50 mg PO Q6HR PRN #14 tablet 12/09/17 Unknown Rx Clindamycin [Clindamycin CAP] 150 mg PO Q6HR #40 capsule 06/05/20 Unknown Rx Ibuprofen [Motrin 400 MG tab] 400 mg PO Q8H PRN #15 tablet 06/05/20 Unknown Rx Allergies Allergy/AdvReac Type Severity Reaction Status Date / Time Penicillins Allergy Unknown Verified 06/05/20 11:30 ED Dental HPI - General Chief complaint: Dental/Oral Stated complaint: TOOTH INFECTION Time Seen by Provider: 06/05/20 12:04 Source: patient Mode of arrival: Ambulatory Limitations: No Limitations - Related Data Previous Rx's Medication Instructions Recorded Last Taken Type Clindamycin [Clindamycin CAP] 450 mg PO Q6HR #58 capsule 03/10/16 Unknown Rx Ibuprofen [Motrin] 600 mg PO Q8H PRN #15 tablet 09/01/16 Unknown Rx Naproxen [Naprosyn TAB] 500 mg PO BID #30 tablet 01/03/17 Unknown Rx Ibuprofen [Motrin] 800 mg PO Q8HR PRN #30 tablet 01/20/17 Unknown Rx Chlorhexidine Mouthwash [Peridex] 15 ml MM BID #1 bottle 06/03/17 Unknown Rx Clindamycin [Clindamycin CAP] 300 mg PO Q8HR 7 Days capsule 06/03/17 Unknown Rx Ibuprofen [Motrin] 600 mg PO Q8H PRN #30 tablet 06/03/17 Unknown Rx traMADoL [Ultram] 50 mg PO Q6HR PRN #15 tablet 06/03/17 Unknown Rx Guaifenesin/Pseudoephedrne HCl 1 tab PO BID #24 tab 11/08/17 Unknown Rx [Mucinex D ER 1,200-120 mg Tab] Ibuprofen 800 mg PO TID PRN #30 tablet 11/08/17 Unknown Rx Clindamycin [Clindamycin CAP] 300 mg PO Q8HR 7 Days capsule 12/09/17 Unknown Rx Ibuprofen 800 mg PO TID #30 tablet 12/09/17 Unknown Rx Ondansetron [Zofran Odt] 4 mg PO Q8HR PRN #14 tab.rapdis 12/09/17 Unknown Rx Ursodiol (Nf) [Actigall (Nf)] 300 mg PO BID #60 capsule 12/09/17 Unknown Rx traMADoL [Ultram] 50 mg PO Q6HR PRN #14 tablet 12/09/17 Unknown Rx Clindamycin [Clindamycin CAP] 150 mg PO Q6HR #40 capsule 06/05/20 Unknown Rx Ibuprofen [Motrin 400 MG tab] 400 mg PO Q8H PRN #15 tablet 06/05/20 Unknown Rx Allergies Allergy/AdvReac Type Severity Reaction Status Date / Time Penicillins Allergy Unknown Verified 06/05/20 11:30 ED Review of Systems ROS: Stated complaint: TOOTH INFECTION Other details as noted in HPI Comment: All other systems reviewed and negative ED Past Medical Hx - Past Medical History Hx Psychiatric Treatment: Yes (Anxiety, Schizophrenia, Depression, Memory problems) Hx Asthma: Yes Additional medical history: Gall stones - Surgical History Additional Surgical History: skin cancer removed - Social History Smoking Status: Current Every Day Smoker Substance Use Type: Alcohol - Medications Home Medications: Home Medications Medication Instructions Recorded Confirmed Last Taken Type Clindamycin [Clindamycin CAP] 450 mg PO Q6HR #58 capsule 03/10/16 Unknown Rx Ibuprofen [Motrin] 600 mg PO Q8H PRN #15 tablet 09/01/16 Unknown Rx Naproxen [Naprosyn TAB] 500 mg PO BID #30 tablet 01/03/17 Unknown Rx Ibuprofen [Motrin] 800 mg PO Q8HR PRN #30 tablet 01/20/17 Unknown Rx Chlorhexidine Mouthwash [Peridex] 15 ml MM BID #1 bottle 06/03/17 Unknown Rx Clindamycin [Clindamycin CAP] 300 mg PO Q8HR 7 Days capsule 06/03/17 Unknown Rx Ibuprofen [Motrin] 600 mg PO Q8H PRN #30 tablet 06/03/17 Unknown Rx traMADoL [Ultram] 50 mg PO Q6HR PRN #15 tablet 06/03/17 Unknown Rx Guaifenesin/Pseudoephedrne HCl 1 tab PO BID #24 tab 11/08/17 Unknown Rx [Mucinex D ER 1,200-120 mg Tab] Ibuprofen 800 mg PO TID PRN #30 tablet 11/08/17 Unknown Rx Clindamycin [Clindamycin CAP] 300 mg PO Q8HR 7 Days capsule 12/09/17 Unknown Rx Ibuprofen 800 mg PO TID #30 tablet 12/09/17 Unknown Rx Ondansetron [Zofran Odt] 4 mg PO Q8HR PRN #14 tab.rapdis 12/09/17 Unknown Rx Ursodiol (Nf) [Actigall (Nf)] 300 mg PO BID #60 capsule 12/09/17 Unknown Rx traMADoL [Ultram] 50 mg PO Q6HR PRN #14 tablet 12/09/17 Unknown Rx Clindamycin [Clindamycin CAP] 150 mg PO Q6HR #40 capsule 06/05/20 Unknown Rx Ibuprofen [Motrin 400 MG tab] 400 mg PO Q8H PRN #15 tablet 06/05/20 Unknown Rx ED Physical Exam - General Limitations: No Limitations ED Course Vital Signs 06/05/20 06/05/20 11:29 11:32 Temperature 98.4 F Pulse Rate 103 H Respiratory 18 Rate Blood Pressure 122/91 O2 Sat by Pulse 99 Oximetry ED Medical Decision Making - Medical Decision Making 35-year-old -[place] female presents to the emergency room for right upper quadrant dental pain with swelling. Patient states she has had multiple dental abscesses and admits that her her mouth needs lots of work. Patient states that the pain started last night. She denies any chest pain shortness of breath difficulty swallowing or drainage from her mouth. Patient denies any fever chills. Patient states that she is not a big fan of taking pain medication. Patient has been seen here several times for the same complaint. She does have an allergy to penicillin. She states the clindamycin does help with her infections. Patient will be placed on clindamycin 150 mg every 4 hours x10 days. Patient reports that at 300 mg clindamycin makes her feel high. Patient was given a prescription for ibuprofen 400 mg. Patient is also given a referral to several dental clinics in the community. Critical care attestation.: If time is entered above; I have spent that time in minutes in the direct care of this critically ill patient, excluding procedure time. ED Disposition Clinical Impression: Dental abscess Disposition: DC- TO HOME OR SELFCARE Is pt being admited?: No Does the pt Need Aspirin: No Condition: Stable Instructions: Skin Abscess, [id number] Additional Instructions: Complete antibiotics as prescribed. Take pain medication as needed. Increase your water intake. Very important for you to follow-up with a dentist. I have listed several below for your convenience. Prescriptions: Clindamycin [Clindamycin CAP] 150 mg PO Q6HR #40 capsule Ibuprofen [Motrin 400 MG tab] 400 mg PO Q8H PRN #15 tablet PRN Reason: Pain , Severe (7-10) Referrals: [facility] [Outside] - 3-5 Days [facility] [Outside] - 3-5 Days [facility] [Provider Group] - 3-5 Days
== END 2020-06-05 12:51 | disposition home or self-care (01) ==
LOC: ED 11:14
DX: K04.7 Periapical abscess without sinus (principal); F41.9 Anxiety disorder, unspecified; F20.9 Schizophrenia, unspecified; F32.9 Major depressive disorder, single episode, unspecified; J45.909 Unspecified asthma, uncomplicated; F17.200 Nicotine dependence, unspecified, uncomplicated; Z79.899 Other long term (current) drug therapy; Z88.0 Allergy status to penicillin
CPT/HCPCS: 99282

== ENCOUNTER 2020-07-22 18:15 | Emergency (ER) | payer MEDICAID ==
--- NOTE | 2020-07-22 20:17 | Emergency Department Report ---
ED ENT HPI - General Chief complaint: Dental/Oral Stated complaint: TOOTHACHE Time Seen by Provider: 07/22/20 19:27 Source: patient Mode of arrival: Ambulatory Limitations: No Limitations - History of Present Illness Initial comments: 35-year-old -[place]aur[place] female who is well-known to this provider presents to the emergency room complaints of dental abscess. Patient has been seen to this emergency room 5 times for the same complaint. Patient has not followed up with a dentist. Patient denies any fever chills no trauma no discharge from the mouth. Patient states she is aware that she has multiple dental issues. MD complaint: tooth pain Severity: moderate Severity scale (0 -10): 8 Quality: aching Consistency: intermittent Improves with: NSAID Worsens with: medication Context- Dental: history of dental caries Associated Symptoms: gum swelling, toothache. denies: fever, cough, pain with swallowing, sore throat, tinnitus, hearing loss - Related Data Previous Rx's Medication Instructions Recorded Last Taken Type Clindamycin [Clindamycin CAP] 450 mg PO Q6HR #58 capsule 03/10/16 Unknown Rx Ibuprofen [Motrin] 600 mg PO Q8H PRN #15 tablet 09/01/16 Unknown Rx Naproxen [Naprosyn TAB] 500 mg PO BID #30 tablet 01/03/17 Unknown Rx Chlorhexidine Mouthwash [Peridex] 15 ml MM BID #1 bottle 06/03/17 Unknown Rx Ibuprofen [Motrin] 600 mg PO Q8H PRN #30 tablet 06/03/17 Unknown Rx traMADoL [Ultram] 50 mg PO Q6HR PRN #15 tablet 06/03/17 Unknown Rx Guaifenesin/Pseudoephedrne HCl 1 tab PO BID #24 tab 11/08/17 Unknown Rx [Mucinex D ER 1,200-120 mg Tab] Ibuprofen 800 mg PO TID PRN #30 tablet 11/08/17 Unknown Rx Clindamycin [Clindamycin CAP] 300 mg PO Q8HR 7 Days capsule 12/09/17 Unknown Rx Ibuprofen 800 mg PO TID #30 tablet 12/09/17 Unknown Rx Ondansetron [Zofran Odt] 4 mg PO Q8HR PRN #14 tab.rapdis 12/09/17 Unknown Rx Ursodiol (Nf) [Actigall (Nf)] 300 mg PO BID #60 capsule 12/09/17 Unknown Rx traMADoL [Ultram] 50 mg PO Q6HR PRN #14 tablet 12/09/17 Unknown Rx Ibuprofen [Motrin 400 MG tab] 400 mg PO Q8H PRN #15 tablet 06/05/20 Unknown Rx Clindamycin [Clindamycin CAP] 150 mg PO Q6HR #40 capsule 07/22/20 Unknown Rx Ibuprofen [Motrin 800 MG tab] 800 mg PO Q8HR PRN #30 tablet 07/22/20 Unknown Rx Allergies Allergy/AdvReac Type Severity Reaction Status Date / Time Penicillins Allergy Unknown Verified 06/05/20 11:30 ED Dental HPI - General Chief complaint: Dental/Oral Stated complaint: TOOTHACHE Time Seen by Provider: 07/22/20 19:27 Source: patient Mode of arrival: Ambulatory Limitations: No Limitations - Related Data Previous Rx's Medication Instructions Recorded Last Taken Type Clindamycin [Clindamycin CAP] 450 mg PO Q6HR #58 capsule 03/10/16 Unknown Rx Ibuprofen [Motrin] 600 mg PO Q8H PRN #15 tablet 09/01/16 Unknown Rx Naproxen [Naprosyn TAB] 500 mg PO BID #30 tablet 01/03/17 Unknown Rx Chlorhexidine Mouthwash [Peridex] 15 ml MM BID #1 bottle 06/03/17 Unknown Rx Ibuprofen [Motrin] 600 mg PO Q8H PRN #30 tablet 06/03/17 Unknown Rx traMADoL [Ultram] 50 mg PO Q6HR PRN #15 tablet 06/03/17 Unknown Rx Guaifenesin/Pseudoephedrne HCl 1 tab PO BID #24 tab 11/08/17 Unknown Rx [Mucinex D ER 1,200-120 mg Tab] Ibuprofen 800 mg PO TID PRN #30 tablet 11/08/17 Unknown Rx Clindamycin [Clindamycin CAP] 300 mg PO Q8HR 7 Days capsule 12/09/17 Unknown Rx Ibuprofen 800 mg PO TID #30 tablet 12/09/17 Unknown Rx Ondansetron [Zofran Odt] 4 mg PO Q8HR PRN #14 tab.rapdis 12/09/17 Unknown Rx Ursodiol (Nf) [Actigall (Nf)] 300 mg PO BID #60 capsule 12/09/17 Unknown Rx traMADoL [Ultram] 50 mg PO Q6HR PRN #14 tablet 12/09/17 Unknown Rx Ibuprofen [Motrin 400 MG tab] 400 mg PO Q8H PRN #15 tablet 06/05/20 Unknown Rx Clindamycin [Clindamycin CAP] 150 mg PO Q6HR #40 capsule 07/22/20 Unknown Rx Ibuprofen [Motrin 800 MG tab] 800 mg PO Q8HR PRN #30 tablet 07/22/20 Unknown Rx Allergies Allergy/AdvReac Type Severity Reaction Status Date / Time Penicillins Allergy Unknown Verified 06/05/20 11:30 ED Review of Systems ROS: Stated complaint: TOOTHACHE Other details as noted in HPI Comment: All other systems reviewed and negative ED Past Medical Hx - Past Medical History Previous Medical History?: Yes Hx Psychiatric Treatment: Yes (Anxiety, Schizophrenia, Depression, Memory problems) Hx Asthma: Yes Additional medical history: Gall stones - Surgical History Past Surgical History?: Yes Additional Surgical History: skin cancer removed - Social History Smoking Status: Current Every Day Smoker Substance Use Type: Alcohol - Medications Home Medications: Home Medications Medication Instructions Recorded Confirmed Last Taken Type Clindamycin [Clindamycin CAP] 450 mg PO Q6HR #58 capsule 03/10/16 Unknown Rx Ibuprofen [Motrin] 600 mg PO Q8H PRN #15 tablet 09/01/16 Unknown Rx Naproxen [Naprosyn TAB] 500 mg PO BID #30 tablet 01/03/17 Unknown Rx Chlorhexidine Mouthwash [Peridex] 15 ml MM BID #1 bottle 06/03/17 Unknown Rx Ibuprofen [Motrin] 600 mg PO Q8H PRN #30 tablet 06/03/17 Unknown Rx traMADoL [Ultram] 50 mg PO Q6HR PRN #15 tablet 06/03/17 Unknown Rx Guaifenesin/Pseudoephedrne HCl 1 tab PO BID #24 tab 11/08/17 Unknown Rx [Mucinex D ER 1,200-120 mg Tab] Ibuprofen 800 mg PO TID PRN #30 tablet 11/08/17 Unknown Rx Clindamycin [Clindamycin CAP] 300 mg PO Q8HR 7 Days capsule 12/09/17 Unknown Rx Ibuprofen 800 mg PO TID #30 tablet 12/09/17 Unknown Rx Ondansetron [Zofran Odt] 4 mg PO Q8HR PRN #14 tab.rapdis 12/09/17 Unknown Rx Ursodiol (Nf) [Actigall (Nf)] 300 mg PO BID #60 capsule 12/09/17 Unknown Rx traMADoL [Ultram] 50 mg PO Q6HR PRN #14 tablet 12/09/17 Unknown Rx Ibuprofen [Motrin 400 MG tab] 400 mg PO Q8H PRN #15 tablet 06/05/20 Unknown Rx Clindamycin [Clindamycin CAP] 150 mg PO Q6HR #40 capsule 07/22/20 Unknown Rx Ibuprofen [Motrin 800 MG tab] 800 mg PO Q8HR PRN #30 tablet 07/22/20 Unknown Rx ED Physical Exam - General Limitations: No Limitations General appearance: alert, in no apparent distress - Head Head exam: Present: atraumatic, normocephalic - Eye Eye exam: Present: normal appearance - ENT ENT exam: Present: mucous membranes moist - Neck Neck exam: Present: normal inspection, full ROM - Respiratory Respiratory exam: Absent: respiratory distress, accessory muscle use - Cardiovascular Cardiovascular Exam: Present: regular rate, systolic murmur, diastolic murmur, rubs, gallop - GI/Abdominal GI/Abdominal exam: Present: soft, normal bowel sounds - Extremities Exam Extremities exam: Present: normal inspection - Back Exam Back exam: Present: normal inspection - Neurological Exam Neurological exam: Present: alert, oriented X3 - Psychiatric Psychiatric exam: Present: normal affect, normal mood - Skin Skin exam: Present: warm, dry, intact, normal color. Absent: rash ED Course Vital Signs 07/22/20 18:26 Temperature 98.6 F Pulse Rate 86 Respiratory 13 Rate Blood Pressure 141/79 O2 Sat by Pulse 99 Oximetry ED Medical Decision Making - Medical Decision Making 35-year-old -[place] female who is well-known to this provider presents to the emergency room complaints of dental abscess. Patient has been seen to this emergency room 5 times for the same complaint. Patient has not followed up with a dentist. Patient denies any fever chills no trauma no discharge from the mouth. Patient states she is aware that she has multiple dental issues. Patient is given a prescription for clindamycin 150 mg p.o. every 6 hours. Ibuprofen for pain and referral to a dentist. Critical care attestation.: If time is entered above; I have spent that time in minutes in the direct care of this critically ill patient, excluding procedure time. ED Disposition Clinical Impression: Dental abscess Disposition: DC TO HOME OR SELFCARE Is pt being admited?: No Does the pt Need Aspirin: No Condition: Stable Instructions: Skin Abscess, [id number] Additional Instructions: It is very important you follow-up with a dentist. Complete antibiotics pain medication as needed Prescriptions: Clindamycin [Clindamycin CAP] 150 mg PO Q6HR #40 capsule Ibuprofen [Motrin 800 MG tab] 800 mg PO Q8HR PRN #30 tablet PRN Reason: Pain Referrals: [facility] [Outside] - 3-5 Days [facility] [Outside] - 3-5 Days
[2020-07-22 22:59] VITALS: BP 132/77
== END 2020-07-22 20:30 | disposition home or self-care (01) ==
LOC: ED 18:15
DX: K04.7 Periapical abscess without sinus (principal); F41.9 Anxiety disorder, unspecified; F20.9 Schizophrenia, unspecified; J45.909 Unspecified asthma, uncomplicated; F17.200 Nicotine dependence, unspecified, uncomplicated; Z98.890 Other specified postprocedural states; Z79.1 Long term (current) use of non-steroidal anti-inflammatories (NSAID); Z79.2 Long term (current) use of antibiotics; Z79.899 Other long term (current) drug therapy; Z88.0 Allergy status to penicillin
CPT/HCPCS: 99282